=== PATIENT | female | born 1955 | race Caucasian/White ===

== ENCOUNTER 2018-03-26 19:46 | Observation (INO) | payer BC, OTHER ==
[2018-03-26] MEDS ORDERED: LABETALOL HCL 5 MG/1 ML (100MG/20 ML VIAL) IVPUSH ONE (20:34)
--- NOTE | 2018-03-26 20:43 | PDOC ---
Attending Attestation - Resident Resident Name: Mainor Nevarez - ED Attending Attestation I have performed the following: I have examined & evaluated the patient, The case was reviewed & discussed with the resident, I agree w/resident's findings & plan, Exceptions are as noted - HPI HPI: 03/27/18 00:04 Ms castillo is a 62 yo F with a history of HTN She preesnts to the ER with a complaint of chest pain Pt states she was seated and watching the [employer] and developed chest pain She noted that she felt her heart racing Pt states that she attributes this to a new medication that she was placed on No shortness of breath No recent travel No lower extremity edema - Physicial Exam PE: 03/27/18 00:48 GENERAL: The patient is in no acute distress. LUNGS: Breath sounds equal, clear to auscultation bilaterally. No wheezes, and no crackles. HEART:Regular rate and rhythm, normal S1 and S2 without murmur, rub or gallop. ABDOMEN: Soft, nontender, normoactive bowel sounds. No guarding, no rebound. No masses palpable. EXTREMITIES: Normal range of motion NEUROLOGICAL: Cranial nerves II through XII grossly intact. Normal speech. No focal neurological deficits. MUSCULOSKELETAL: Back non-tender to palpation, no CVA tenderness SKIN: Warm, Dry, normal turgor, no rashes or lesions noted. - Medical Decision Making 03/27/18 00:49 62 yo F preesnting to the ER with a complaint of chest pain, palpitations Heart was racing and upon arrival to the ER, pt noted to be hypertensive DD: ACS, Arrhythmia, PE (less likely given history and vitals), dissection (bps in both arms done and are equal) EKG: Sinus tachycardia, rate of 101 bpm, LAD, no st elevations or depressions, t waves upright Will do labs Repeat trop Laboratory Tests 03/26/18 03/26/18 20:28 23:16 Creatine Kinase 60 55 Troponin I < 0.02 0.08 H given slight elevation in trop, will place on observation Clinical Impression: chest pain, initial presentation Hypertension, initial presentation Heart Score/ECG Review - History History: Moderately suspicious - Electrocardiogram EKG: Normal - Age Age: 45-65 - Risk Factors Risk Factors Heart Score: Yes Hx Hypertension, Yes Hx Diabetes, Yes Hx Obesity Based on the list above the patient has:: >/=3 risk factors or Hx atherosclerotic disease - Troponin Troponin: </= normal limit - Score Heart Score - Total: 4
[2018-03-26 20:53] LABS: BASO % 0.9 % (0-2.0); EOS % 2.7 % (0-4.5); HEMOGLOBIN 13.4 GM/dL (10.7-15.3); LYMPH % 41.2 % (8-40); MCHC 33.5 g/dl (32.0-36.0); MEAN CELL VOLUME 80.6 fl (80-96); MEAN PLT VOLUME 8.5 fl (7.5-11.1); MONO % 6.7 % (3.8-10.2); NEUT % 48.5 % (42.8-82.8); PLATELET COUNT 240 K/MM3 (134-434); RBC 4.96 M/mm3 (3.60-5.2); RDW 15.9 % (11.6-15.6); WHITE BLOOD COUNT 8.3 K/mm3 (4.0-10.0)
[2018-03-26 21:16] LABS: ALBUMIN 3.5 g/dl (3.4-5.0); ANION GAP 6 (8-16); BILIRUBIN,TOTAL 0.3 mg/dL (0.2-1.0); BLOOD UREA NITROGEN 15 mg/dL (7-18); CALCIUM 8.6 mg/dL (8.5-10.1); CHLORIDE 108 mmol/L (98-107); CO2 27 mmol/L (21-32); CREATININE 0.9 mg/dL (0.55-1.02); GLUCOSE,RANDOM 213 mg/dL (74-106); POTASSIUM 3.9 mmol/L (3.5-5.1); SGOT/AST 16 U/L (15-37); SGPT/ALT 20 U/L (12-78); SODIUM 141 mmol/L (136-145); TOT PROT 7.4 g/dl (6.4-8.2)
[2018-03-26 21:18] LABS: ALK PHOS 92 U/L (45-117)
--- NOTE | 2018-03-26 21:23 | PDOC ---
History of Present Illness - General Chief Complaint: Pain Stated Complaint: CHEST PAIN Time Seen by Provider: 03/26/18 20:22 History Source: Patient Exam Limitations: No Limitations - History of Present Illness Initial Comments: 03/26/18 21:44 62yo F with history of Type 2 DM and HTN (on losartan) who presents today with palpitations, headache, and some chest discomfort that started around 6pm today. Pt reports this is the second episode of this which correlated with her taking a new diabetic medication that her primary provider prescribed. She was originally on 2 agents, however she was recently switched to a combo agent. Currently she reports palpitations with some chest discomfort that radiates to her back. In addition she endorses a frontal headache which began to generalize. Upon evaluation here her BP was found to be 188/103. She denies any fevers/chills, blurred vision, changes in sensation, changes in motor function, SOB, abdominal pain, dysuria, polyuria. She denies any history of cardiac disease to this point. She denies smoking and endorses occassional glasses of wine with dinner. Past History - Past Medical History Allergies/Adverse Reactions: Allergies Allergy/AdvReac Type Severity Reaction Status Date / Time aspirin Allergy "RASH ON Verified 03/26/18 19:57 FACE" Home Medications: Ambulatory Orders Dulaglutide [Trulicity] 0.75 mg SQ WEEKLY 07/28/16 Insulin Glargine,Hum.rec.anlog [Edvin Peterson] 10 unit SQ DAILY 07/28/16 Lisinopril 20 mg PO DAILY 07/28/16 Metformin HCl 500 mg PO BID 07/28/16 Pioglitazone HCl [Actos] 15 mg PO DAILY 07/28/16 Venlafaxine HCl ER [Effexor Xr -] 75 mg PO DAILY 07/28/16 COPD: No Diabetes: Yes HTN: Yes - Suicide/Smoking/Psychosocial Hx Smoking History: Never smoked Have you smoked in the past 12 months: No Information on smoking cessation initiated: No Hx Alcohol Use: No Drug/Substance Use Hx: No Substance Use Type: None Hx Substance Use Treatment: No Review of Systems - Review of Systems Constitutional: No: Chills, Fever, Malaise, Weakness HEENTM: No: Blurred Vision, Nose Congestion, Throat Pain Respiratory: No: Cough, Shortness of Breath, Wheezing Cardiac (ROS): Yes: Lightheadedness, Palpitations, Chest Tightness. No: Irregular Heart Rate ABD/GI: No: Constipated, Diarrhea, Nausea, Vomiting, Abdominal cramping : No: Dysuria, Frequency, Flank Pain Musculoskeletal: No: Back Pain, Neck Pain Neurological: Yes: Headache. No: Numbness, Tingling, Weakness, Unsteady Gait Psychiatric: Yes: Anxiety. No: Depression Hematologic/Lymphatic: No: Easy Bleeding, Easy Bruising *Physical Exam - Vital Signs Last Vital Signs Temp Pulse Resp BP Pulse Ox 98.0 F 108 H 20 147/102 97 03/26/18 19:57 03/26/18 19:57 03/26/18 19:57 03/26/18 19:57 03/26/18 19:57 - Physical Exam Comments: 03/26/18 21:49 GEN: NAD, awake, alert, and oriented HEENT: EOMI, SHAYY, NC/AT, moist mucosa Neck: No JVD LUNGS: CTA bilaterally CARDIAC: Tachycardic with regular rhythm no murmurs appreciated ABD: Soft, normoactive BS, NT/ND, no guarding BACK: No gross deformity, no CVA tenderness NEURO: CNII -XII intact, strength 5/5 grossly, sensation grossly intact EXT: Warm, no edema, DP 2+ ED Treatment Course - LABORATORY CBC & Chemistry Diagram: 03/26/18 20:28 03/26/18 20:28 - ADDITIONAL ORDERS Additional order review: 03/26/18 20:28 RBC 4.96 MCV 80.6 MCHC 33.5 RDW 15.9 H MPV 8.5 Neutrophils % 48.5 Lymphocytes % 41.2 H Monocytes % 6.7 Eosinophils % 2.7 Basophils % 0.9 - RADIOLOGY Radiology Studies Ordered: Category Date Time Status CHEST PA & LAT [RAD] Stat Radiology 03/26/18 20:22 Ordered - Medications Given in the ED: ED Medications Discontinued Medications Generic Name Dose Route Start Last Admin Trade Name Freq PRN Reason Stop Dose Admin Labetalol HCl 10 mg 03/26/18 20:34 03/26/18 21:06 Normodyne Injection - IVPUSH 03/26/18 20:35 10 mg ONCE ONE Administration Medical Decision Making - Medical Decision Making 03/26/18 20:32 Highly suspicious for hypertensive urgency --Labetolol 10mg IVP once --CBC, CMP, Trop, CXR, EKG to r/o any ACS --HEART score 3 03/26/18 21:42 On reassessment of pt after Labetolol 10mg IV she feels much better --Headache and chest discomfort have resolved --Labs are unremarkable including troponin levels --EKG revealed sinus tachycardia without any signs of ischemia --CXR negative for acute pathology Discussed about follow-up with her primary and recommended returning to her previous dual agent diabetic medication until speaking with Dr. Mandujano as this can be a possible side effect being that it correlated with the dosages. 03/26/18 22:24 Will repeat cardiac profile for confirmation of 2 negative troponins 03/27/18 00:57 Repeat troponin 0.08 (uptrending) Discussed with patient to stay and trend troponin --Most likely demand given lack of CK rise, however cannot r/o uptrending troponin reflecting need for further investigation *DC/Admit/Observation/Transfer Diagnosis at time of Disposition: Hypertensive urgency - Discharge Dispostion Admit: Yes - Referrals - Patient Instructions - Post Discharge Activity
--- NOTE | 2018-03-27 01:07 | HP ---
CHIEF COMPLAINT: chest discomfort PCP: Dr. Mandujano HISTORY OF PRESENT ILLNESS: The patient is a 62 yo f w/ PMH DM and HTN who comes into the ED c/o palpitations, headache and chest discomfort since 6pm. The patient states that the discomfort is located in the center of the chest and radiates to her back. This discomfort was associated with a frontal headache which generalized to involve the whole head over time. The patient also complains of dizziness and generalized weakness associated with her palpitations. The patient states that she had a similar episode of palpitations and discomfort which she associates with her taking a new combination diabetes medication that she recently started (Soliqua). BP in the ED was noted to be 188/103. Patient denies any SOB, abdominal pain, changes in vision, weakness. Patient endorses incidental finding of "enlarged thryoid" when she was getting a carotid doppler. Patient states that she has been compliant with her medications. Patient's last colonoscopy was unremakrable and was over 10 years ago. Patient' s last mammogram was over 5 years ago and was unremarkable. ER course was notable for: (1) Labetolol 10mg IVP (2) EKG showing sinus tachy@ 101, QTc 451 (3) troponin <.02 -> .08 Recent Travel: Went to [place] for 2 days in December PAST MEDICAL HISTORY: HTN, DM PAST SURGICAL HISTORY: Tubal ligation Right ureteral stent placement Right ureteral stricture repair Social History: Smoking: denies Alcohol: denies Drugs: denies Family History: Father, Brothers and cousins all with CAD and MD at a young age Allergies aspirin Allergy (Verified 03/26/18 19:57) "RASH ON FACE" HOME MEDICATIONS: Home Medications Medication Instructions Recorded Dulaglutide [Trulicity] 0.75 mg SQ WEEKLY 07/28/16 Insulin Glargine,Hum.rec.anlog 10 unit SQ DAILY 07/28/16 [Edvin Peterson] Lisinopril 20 mg PO DAILY 07/28/16 Metformin HCl 500 mg PO BID 07/28/16 Pioglitazone HCl [Actos] 15 mg PO DAILY 07/28/16 Venlafaxine HCl ER [Effexor Xr -] 75 mg PO DAILY 07/28/16 REVIEW OF SYSTEMS CONSTITUTIONAL: Absent: fever, chills, diaphoresis, malaise, loss of appetite, weight change HEENT: Absent: rhinorrhea, nasal congestion, throat pain, throat swelling, difficulty swallowing, mouth swelling, ear pain, eye pain, visual changes CARDIOVASCULAR: Absent: syncope, irregular heart rate, lightheadedness, peripheral edema RESPIRATORY: Absent: cough, shortness of breath, dyspnea with exertion, orthopnea, wheezing, stridor, hemoptysis GASTROINTESTINAL: Absent: abdominal pain, abdominal distension, nausea, vomiting, diarrhea, constipation, melena, hematochezia GENITOURINARY: Absent: dysuria, frequency, urgency, hesitancy, hematuria, flank pain, genital pain MUSCULOSKELETAL: Absent: myalgia, arthralgia, joint swelling, back pain, neck pain SKIN: Absent: rash, itching, pallor HEMATOLOGIC/IMMUNOLOGIC: Absent: easy bleeding, easy bruising, lymphadenopathy, frequent infections ENDOCRINE: Absent: unexplained weight gain, unexplained weight loss, heat intolerance, cold intolerance NEUROLOGIC: Absent: headache, focal weakness or paresthesias, dizziness, unsteady gait, seizure, mental status changes, bladder or bowel incontinence PSYCHIATRIC: Absent: anxiety, depression, suicidal or homicidal ideation, hallucinations. PHYSICAL EXAMINATION Vital Signs - 24 hr 03/26/18 03/26/18 19:57 22:00 Temperature 98.0 F Pulse Rate 108 H Pulse Rate [ 81 Left Radial] Respiratory 20 Rate Blood Pressure 147/102 Blood Pressure 153/94 [Left Arm] O2 Sat by Pulse 97 Oximetry (%) GENERAL: Awake, alert, and fully oriented, in no acute distress. HEAD: Normal with no signs of trauma. EYES: Pupils equal, round and reactive to light, extraocular movements intact, sclera anicteric, conjunctiva clear. No lid lag. NOSE, THROAT: nares patent, oropharynx clear without exudates. Moist mucous membranes. NECK: Normal range of motion, supple without lymphadenopathy, JVD. There is mild enlargement of the right thyroid without nodules, tenderness or warmth. LUNGS: Breath sounds equal, clear to auscultation bilaterally. No wheezes, and no crackles. No accessory muscle use. HEART: Regular rate and rhythm, normal S1 and S2 without murmur, rub or gallop. ABDOMEN: Soft, nontender, not distended, normoactive bowel sounds, no guarding, no rebound, no masses. No hepatomegaly or splenomegaly. MUSCULOSKELETAL: No CVA tenderness. LOWER EXTREMITIES: 2+ pulses, warm, well-perfused. No calf tenderness. No peripheral edema. NEUROLOGICAL: Cranial nerves II-X intact. Normal speech. Strength 5/5 in all 4 extremities. PSYCHIATRIC: Cooperative. Good eye contact. Appropriate mood and affect. SKIN: Warm, dry, normal turgor, no rashes or lesions noted, normal capillary refill. Laboratory Results - last 24 hr 03/26/18 03/26/18 03/26/18 20:28 20:28 23:16 WBC 8.3 RBC 4.96 Hgb 13.4 Hct 40.0 MCV 80.6 MCH 27.0 MCHC 33.5 RDW 15.9 H Plt Count 240 MPV 8.5 Neutrophils % 48.5 Lymphocytes % 41.2 H Monocytes % 6.7 Eosinophils % 2.7 Basophils % 0.9 Sodium 141 Potassium 3.9 Chloride 108 H Carbon Dioxide 27 Anion Gap 6 L BUN 15 Creatinine 0.9 Creat Clearance w eGFR > 60 Random Glucose 213 H Calcium 8.6 Total Bilirubin 0.3 AST 16 ALT 20 Alkaline Phosphatase 92 Creatine Kinase 60 55 Troponin I < 0.02 0.08 H Total Protein 7.4 Albumin 3.5 ASSESSMENT/PLAN: The patient is a 62 yo f w/ PMH DM, HTN who comes in complaining of chest discomfort and palpitations found to have elevated BP. #Troponemia, HTN and palpitations 2/2 medication noncompliance vs Thyroid dysfunction vs medication side effect (SOLIQUA) r/o ACS -Trop <.02 -> .08 -will trend trops -TSH -Lipid panel -mag and phos added on to previous labs -tele monitoring -cardio consult for risk stratification -medications verified with [facility] pharmacy; per pharmacist, the patient last picked up her Lostartan in December #Hypertensive urgency -resume home losartan 100mg daily -will start Norvasc 5mg in AM -clonidine .2 mg once -echo in AM #DM -BGM ACHS -ISS ACHS -A1c in AM #Prophy -Lovenox 40mg SQ daily #FEN -no fluids indicated -monitor lytes, replete PRN -diabetic diet #Dispo -Admit tele obs - Visit type - Emergency Visit Emergency Visit: Yes ED Registration Date: 03/27/18 Care time: The patient presented to the Emergency Department on the above date and was hospitalized for further evaluation of their emergent condition. - New Patient This patient is new to me today: Yes Date on this admission: 03/27/18 - Critical Care Critical Care patient: No Hospitalist Screening - Colonoscopy Questionnaire Colonoscopy Questionnaire: Colonoscopy Questionnaire - Patient: 50 - 75 years old and never had a screening colonoscopy: No History of colon or rectal polyps, or CA: Unknown History of IBD, Crohn's disease or UC: Unknown History of abdominal radiation therapy as a child: Unknown - Relative: 1 with colon or rectal CA, or polyps at age 60 or younger: Unknown Colon or rectal CA diagnosed at age 45 or younger: Unknown Multiple relatives with colon or rectal CA: Unknown - Outcome: Screening Result: Negative Screen
[2018-03-27] MEDS ORDERED: cloNIDine HCL 0.1 MG TABLET PO ONE (02:29)
--- NOTE | 2018-03-27 02:48 | PN ---
Teaching Attending Note Name of Resident: Ronaldo Fernandez ATTENDING PHYSICIAN STATEMENT I saw and evaluated the patient. Chart, data, imaging reviewed. I reviewed the resident's note and discussed the case with the resident. I agree with the resident's findings and plan as documented. SUBJECTIVE: 62yo woman with uncontrolled HTN and DM, recently started on a new DM medication - Soliqua, c/o palpitations and chest pain which started 5/5 in the evening and is now resolved. Pt reports compliance with medications. She reports CAD in her brother when he was in his 30s. She had remote cardiac stress test performed which was unremarkable. BP on the floor still elevated. Patient appears comfortable. OBJECTIVE: Last Vital Signs Temp Pulse Resp BP Pulse Ox 98.0 F 81 20 153/94 97 03/26/18 19:57 03/26/18 22:00 03/26/18 19:57 03/26/18 22:00 03/26/18 19:57 general-nad, aaox3 heent- atraumatic, moist oral mucosa cv-s1+s2+rrr chest- cta b/l skin -no rashes ext - no pedal edema Abnormal Lab Results 03/26/18 03/26/18 03/26/18 20:28 20:28 23:16 RDW 15.9 H Lymphocytes % 41.2 H Chloride 108 H Anion Gap 6 L Random Glucose 213 H Troponin I 0.08 H ekg- negative for acute ST-T changes, nsr cxr -reviewed ASSESSMENT AND PLAN: #62yo woman with chest pain and palpitations with mildly elevated troponin. Troponin leak likely secondary to severe hypertension. Doubt active ACS, although higher risk given positive family history. Possible adverse drug reaction to Soliqua as patient had just started taking this medication. -clonidine 0.2mg stat for severe htn -recheck BP in one hour -trend troponin -advised patient to stop taking Soliqua and inform her PCP of possible adverse drug reaction -restart losartan and will add norvasc 5 mg daily for better control -ASA -statin -transthoracic echo -insulin sliding scale -cardiac stress test as outpatient -diabetic, 2g Na diet -heparin sc for dvt prophylaxis
[2018-03-27 03:32] VITALS: BMI 32.8
[2018-03-27] MEDS: INSULIN SLIDING SCALE (NOVOLOG) 1 VIAL SQ SCH ×4 (06:37→22:05)
[2018-03-27 07:00] LABS: ANION GAP 5 (8-16); BLOOD UREA NITROGEN 19 mg/dL (7-18); CALCIUM 8.3 mg/dL (8.5-10.1); CHLORIDE 109 mmol/L (98-107); CO2 29 mmol/L (21-32); CREATININE 0.8 mg/dL (0.55-1.02); GLUCOSE,RANDOM 184 mg/dL (74-106); MAGNESIUM 1.9 mg/dL (1.8-2.4); PHOSPHOROUS 3.9 mg/dL (2.5-4.9); POTASSIUM 4.1 mmol/L (3.5-5.1); SODIUM 143 mmol/L (136-145)
[2018-03-27] MEDS: ENOXAPARIN NA (PORCINE) 40 MG/0.4 ML DISP.SYRIN SQ SCH (09:37)
[2018-03-27] MEDS: LOSARTAN POTASSIUM 50 MG TABLET (FP) PO SCH (09:37)
[2018-03-27] MEDS: amLODIPine BESYLATE 5 MG TABLET (FP) PO SCH (09:37)
--- NOTE | 2018-03-27 09:56 | CON.CARD ---
Consult Consult Specialty:: Cardiology Referred by:: Hospitalist Reason for Consultation:: Cardiac evaluation - History of Present Illness Chief Complaint: Palpitations History of Present Illness: Patient is a 62 year old female with underlying history of hypertension and type 2 diabetes mellitus who presents with complaints of palpitations. ER note states patient also had small amount of chest discomfort. BP was elevated at 188 /103 mmHg. Blood work revealed mild elevation of troponin to 0.10 this am from 0.08 yesterday. She denies chest pain, shortness of breath or palpitations this am. She denies paroxysmal nocturnal dyspnea or orthopnea. She denies fever or chills. She denies nausea, vomiting, diarrhea or abdominal pain. She denies headache or lightheadedness. She has strong family history of CAD and [place]. - History Source History Provided By: Patient, Medical Record Limitations to Obtaining History: No Limitations - Past Medical History Cardio/Vascular: Yes: HTN ...: No Endocrine: Yes: Diabetes Mellitus - Past Surgical History Past Surgical History: Yes: Tubal Ligation - Alcohol/Substance Use Hx Alcohol Use: No - Smoking History Smoking history: Never smoked Have you smoked in the past 12 months: No Home Medications - Allergies Allergies/Adverse Reactions: Allergies Allergy/AdvReac Type Severity Reaction Status Date / Time aspirin Allergy "RASH ON Verified 03/26/18 19:57 FACE" - Home Medications Home Medications: Ambulatory Orders Dulaglutide [Trulicity] 1.5 mg SQ WEEKLY 07/28/16 Insulin Glargine,Hum.rec.anlog [Edvin Peterson] 16 unit SQ DAILY 07/28/16 Metformin HCl 500 mg PO BID 07/28/16 Losartan Potassium 100 mg PO DAILY 03/27/18 Family Disease History - Family Disease History Family Disease History: Heart Disease: Father ( when he was in 40's), Mother , Brother ( when he was 38) Review of Systems - Review of Systems Constitutional: denies: Chills, Fever Cardiovascular: reports: Chest Pain, Palpitations. denies: Shortness of Breath Respiratory: denies: Cough, Hemoptysis, Orthopnea, PND, SOB, SOB on Exertion Gastrointestinal: denies: Abdominal Pain, Constipation, Diarrhea, Melena, Nausea , Rectal Bleeding, Vomiting Musculoskeletal: denies: Back Pain, Joint Pain Neurological: denies: Dizziness, Headache, Numbness, Seizure, Syncope, Weakness Vital Signs: Vital Signs Temperature 98.1 F 03/27/18 07:57 Pulse Rate 60 03/27/18 07:57 Respiratory Rate 17 03/27/18 07:57 Blood Pressure 108/63 03/27/18 07:57 O2 Sat by Pulse Oximetry (%) 96 03/27/18 07:55 Constitutional: Yes: Well Nourished Eyes: Yes: Conjunctiva Clear, PERRL HENT: Yes: Atraumatic Neck: Yes: Supple Respiratory: Yes: CTA Bilaterally Gastrointestinal: Yes: Normal Bowel Sounds, Soft. No: Tenderness Cardiovascular: Yes: Regular Rate and Rhythm JVD: No Carotid Bruit: No PMI: Non-Displaced Heart Sounds: Yes: S1, S2. No: Gallop Murmur: No: Systolic Murmur, Diastolic Murmur Edema: No - Other Data Labs, Other Data: CBC, BMP 03/26/18 20:28 03/27/18 05:00 Troponin, BNP 03/26/18 03/26/18 03/27/18 20:28 23:16 05:00 Troponin I < 0.02 0.08 H 0.10 H Laboratory Results - last 24 hr 03/26/18 03/26/18 03/26/18 20:28 20:28 23:16 WBC 8.3 RBC 4.96 Hgb 13.4 Hct 40.0 MCV 80.6 MCH 27.0 MCHC 33.5 RDW 15.9 H Plt Count 240 MPV 8.5 Neutrophils % 48.5 Lymphocytes % 41.2 H Monocytes % 6.7 Eosinophils % 2.7 Basophils % 0.9 Sodium 141 Potassium 3.9 Chloride 108 H Carbon Dioxide 27 Anion Gap 6 L BUN 15 Creatinine 0.9 Creat Clearance w eGFR > 60 POC Glucometer Random Glucose 213 H Hemoglobin A1c % Calcium 8.6 Phosphorus Magnesium Total Bilirubin 0.3 AST 16 ALT 20 Alkaline Phosphatase 92 Creatine Kinase 60 55 Troponin I < 0.02 0.08 H Total Protein 7.4 Albumin 3.5 Triglycerides Cholesterol Total LDL Cholesterol HDL Cholesterol TSH 03/27/18 03/27/18 03/27/18 05:00 05:00 05:00 WBC RBC Hgb Hct MCV MCH MCHC RDW Plt Count MPV Neutrophils % Lymphocytes % Monocytes % Eosinophils % Basophils % Sodium 143 Potassium 4.1 Chloride 109 H Carbon Dioxide 29 Anion Gap 5 L BUN 19 H Creatinine 0.8 Creat Clearance w eGFR POC Glucometer Random Glucose 184 H Hemoglobin A1c % 8.4 H Calcium 8.3 L Phosphorus 3.9 Magnesium 1.9 Total Bilirubin AST ALT Alkaline Phosphatase Creatine Kinase Troponin I 0.10 H Total Protein Albumin Triglycerides 110 Cholesterol 174 Total LDL Cholesterol 122 H HDL Cholesterol 44 TSH 1.47 Sinus rhythm low voltage Imaging - Results Chest X-ray: Report Reviewed (Unremarkable) EKG: Report Reviewed Problem List - Problems (1) Diabetes mellitus Code(s): E11.9 - TYPE 2 DIABETES MELLITUS WITHOUT COMPLICATIONS (2) Elevated troponin Code(s): R74.8 - ABNORMAL LEVELS OF OTHER SERUM ENZYMES (3) Demand ischemia Code(s): I24.8 - OTHER FORMS OF ACUTE ISCHEMIC HEART DISEASE (4) Hypertensive urgency Code(s): I16.0 - HYPERTENSIVE URGENCY Assessment/Plan 1. Palpitation and possible chest pain syndrome 2. Hypertension 3. Diabetes mellitus 4. Elevated troponin likely represent demand ischemia with elevation of BP, but need to exclude CAD PLAN: 1. Trend troponin 2. Continue Losartan and may continue Amlodipine for now 3. Since allergy to ASA, may use Plavix if needed 4. Lipid panel 5. Transthoracic echocardiography to assess LV/RV and valvular function 6. Consider nuclear myocardial perfusion imaging (Pharmacological in view of presentation) Further plans are to follow Sergio Wilson MD
--- NOTE | 2018-03-27 10:34 | HOSP ---
Subjective - Review of Symptoms Events since last encounter: sub: no cp , or palpitations now. cp lasted 2 hours until BP was controlled. No fevr ro chills,. denies exertional cp or SOB. denies recurrent palpitations . OBJ: VS reviewed. NAD, MMM, ' CV: RRR, no MRG , no JVD Lungs: CTAb Abd: soft, NT, ND ,NL BS Ext: no edema , no erythema , A/P : 62 y/o lady with h/o DM , HTN , and family hx of premature CAD who presented with CP and palpitations. she was found to have HTN emergency 1- HTN emergency with trop leak. Now BP is better controlled - cont losartan and norvasc - might consider BB if CAD - monitor kidney function 2- CP : EKG with RBBB, and flat T waves in septal leads with L axis deviation. trop leak could be demand ischemia in setting of HTN. - trop is slightly elevated, now 0.18. - trend - monitor on tele - if trop plateau and decrease , will probably check stress test given all her risk factors 3- DM : takes Soliqua daily after being changed from Toujio 16 units HS and trulicity weekly - unlikely what happened was a reactionto meds , but will stop it pending d/w her PCP - start levemir in HS - SSI A1c 8.4 4- DVT PX Physical Examination Vital Signs: Vital Signs Temperature 98.1 F 03/27/18 07:57 Pulse Rate 60 03/27/18 07:57 Respiratory Rate 17 03/27/18 07:57 Blood Pressure 108/63 03/27/18 07:57 O2 Sat by Pulse Oximetry (%) 96 03/27/18 07:55 Labs: CBC, BMP 03/26/18 20:28 03/27/18 05:00
[2018-03-27] MEDS ORDERED: INSULIN (NOVOLOG) ASPART 100 UNITS/ML 10ML VIAL ONE (21:54)
[2018-03-27] MEDS ORDERED: ATORVASTATIN CA 20 MG TABLET (FP) PO SCH (22:00)
--- NOTE | 2018-03-27 23:56 | PN ---
Progress Note (short form) - Note Progress Note: Paged by nurse. Was told patient is refusing Lipitor. Patient was advised by her PCP not to take it due to severe muscle aches and soreness. Patient said she has tried multiple statins with the same reactions. -Lipitor held
[2018-03-28] MEDS: INSULIN SLIDING SCALE (NOVOLOG) 1 VIAL SQ SCH ×3 (06:22→17:36)
[2018-03-28 07:18] LABS: ANION GAP 4 (8-16); BLOOD UREA NITROGEN 18 mg/dL (7-18); CALCIUM 7.9 mg/dL (8.5-10.1); CHLORIDE 110 mmol/L (98-107); CO2 28 mmol/L (21-32); CREATININE 0.7 mg/dL (0.55-1.02); GLUCOSE,RANDOM 161 mg/dL (74-106); SODIUM 142 mmol/L (136-145)
[2018-03-28 07:42] LABS: POTASSIUM 4.3 mmol/L (3.5-5.1)
[2018-03-28 08:07] LABS: CHOLESTEROL 169 mg/dL (50-200); HDL CHOLESTEROL 38 mg/dL (40-60); TRIGLYCERIDES 184 mg/dL (35-160)
[2018-03-28] MEDS: ENOXAPARIN NA (PORCINE) 40 MG/0.4 ML DISP.SYRIN SQ SCH ×2 (08:09→10:15)
[2018-03-28] MEDS: LOSARTAN POTASSIUM 50 MG TABLET (FP) PO SCH ×2 (08:09→10:15)
[2018-03-28] MEDS: amLODIPine BESYLATE 5 MG TABLET (FP) PO SCH ×2 (08:09→10:15)
[2018-03-28] MEDS ORDERED: REGADENOSON 0.4 MG/5 ML PRE-FILLED SYRINGE IVPUSH ONE ×2 (09:59→10:30)
--- NOTE | 2018-03-28 10:46 | EKG ---
Test Reason : Blood Pressure : / mmHG Vent. Rate : 101 BPM Atrial Rate : 101 BPM P-R Int : 158 ms QRS Dur : 080 ms QT Int : 348 ms P-R-T Axes : 036 -40 033 degrees QTc Int : 451 ms SINUS TACHYCARDIA LEFT AXIS DEVIATION POSSIBLE LATERAL INFARCT (CITED ON OR BEFORE 26-MAR-2018) ABNORMAL ECG WHEN COMPARED WITH ECG OF 26-AUG-2009 09:28, VENT. RATE HAS INCREASED BY 38 BPM Confirmed by BALBINA BURT MD ([id number]) on 03/28/2018 10:45:34 AM Referred By: Confirmed By:BALBINA BURT MD
--- NOTE | 2018-03-28 10:49 | PN ---
Progress Note, Physician Chief Complaint: Events noted Not in distress History of Present Illness: Patient was seen and examined. Awake and alert. Chart was reviewed Denies chest pain, SOB or palpitations - Current Medication List Current Medications: Active Medications Amlodipine Besylate (Norvasc -) 5 mg PO DAILY [facility] Last Admin: 03/28/18 10:15 Dose: Not Given Enoxaparin Sodium (Lovenox -) 40 mg SQ DAILY [facility] Last Admin: 03/28/18 10:15 Dose: Not Given Insulin Aspart (Novolog Vial Sliding Scale -) 1 vial SQ ACHS [facility] PRN Reason: Protocol Last Admin: 03/28/18 06:22 Dose: Not Given Losartan Potassium (Cozaar -) 100 mg PO DAILY [facility] Last Admin: 03/28/18 10:15 Dose: Not Given - Objective Vital Signs: Vital Signs Temperature 98.1 F 03/28/18 06:00 Pulse Rate 68 03/28/18 06:00 Respiratory Rate 16 03/28/18 06:00 Blood Pressure 130/72 03/28/18 06:00 O2 Sat by Pulse Oximetry (%) 98 03/27/18 21:00 HENT: Yes: Atraumatic Neck: Yes: Supple Cardiovascular: Yes: Regular Rate and Rhythm, S1, S2 Respiratory: Yes: CTA Bilaterally Gastrointestinal: Yes: Normal Bowel Sounds, Soft. No: Tenderness Edema: No Additional Findings/Remarks: - Review of Systems Constitutional: denies: Chills, Fever Cardiovascular: reports: Chest Pain, Palpitations. denies: Shortness of Breath Respiratory: denies: Cough, Hemoptysis, Orthopnea, PND, SOB, SOB on Exertion Gastrointestinal: denies: Abdominal Pain, Constipation, Diarrhea, Melena, Nausea , Rectal Bleeding, Vomiting Musculoskeletal: denies: Back Pain, Joint Pain Neurological: denies: Dizziness, Headache, Numbness, Seizure, Syncope, Weakness Labs: CBC, BMP 03/26/18 20:28 03/28/18 06:30 Problem List - Problems (1) Diabetes mellitus Code(s): E11.9 - TYPE 2 DIABETES MELLITUS WITHOUT COMPLICATIONS Qualifiers: Diabetes mellitus type: type 2 Diabetes mellitus halfway insulin use: without halfway use Diabetes mellitus complication status: without complication Qualified Code(s): E11.9 - Type 2 diabetes mellitus without complications (2) Elevated troponin Code(s): R74.8 - ABNORMAL LEVELS OF OTHER SERUM ENZYMES (3) Demand ischemia Code(s): I24.8 - OTHER FORMS OF ACUTE ISCHEMIC HEART DISEASE (4) Hypertensive urgency Code(s): I16.0 - HYPERTENSIVE URGENCY Assessment/Plan 1. Palpitation and chest pain syndrome 2. Hypertension 3. Diabetes mellitus 4. Elevated troponin likely represent demand ischemia with elevation of BP, but need to exclude CAD PLAN: 1. Trend troponin - now 0.04 2. Continue Losartan and Amlodipine 3. Since allergy to ASA, may use Plavix if needed 4. Lipid panel reviewed 5. Transthoracic echocardiography to assess LV/RV and valvular function 6. Nuclear myocardial perfusion imaging (Pharmacological in view of presentation ) Further plans are to follow. Patient was seen, examined and counseled for 25 min Sergio Wilson MD
--- NOTE | 2018-03-28 14:03 | PN ---
Teaching Attending Note Name of Resident: Mainor Nevarez ATTENDING PHYSICIAN STATEMENT I saw and evaluated the patient. I reviewed the resident's note and discussed the case with the resident. I agree with the resident's findings and plan as documented. SUBJECTIVE: No CP or palpitations. denies SOB OBJECTIVE: NAD, MMM CV: RRR, no MRG , no JVD Lungs: CTAB Ext: no edema, no erythema. A/P : 62 y/o lady with h/o DM , HTN , and family hx of premature CAD who presented with CP and palpitations. she was found to have HTN emergency 1- HTN emergency with trop leak. Now BP is better controlled - cont losartan and norvasc 2- CP with mild hypertroponemia. Trop peaked and trended down. - follow stress test results 3- DM : Levemir and SSI . cont her old regimen of levemir and Trulicity at dc. d/w her PCP the use of soliqua Dispo: if stress test is neg , can dc home
--- NOTE | 2018-03-28 17:20 | DS ---
Physical Exam: SUBJECTIVE: No new complaints today. No events on monitor. No other events experienced such as the one that lead to admission. OBJECTIVE: Vital Signs Period Temp Pulse Resp BP Sys/Simmons Pulse Ox Last 24 Hr 97.8 F-98.4 F 61-82 16-18 119-158/63-86 97-98 PHYSICAL EXAM GEN: NAD, awake, alert, and sitting in bed HEENT: EOMI, SHAYY, sclera anicteric, moist mucosa Neck: Supple, no JVD, no thyromegaly LUNGS: CTA bilaterally no wheezes rhonchi or rales CARDIAC: RRR no murmurs appreciated ABD: Soft, NT/ND, normoactive BS, no guarding. EXT: 2+ distal pulses, warm, no edema noted PSYCH: Normal mood, normal affect. SKIN: Warm, dry, no rashes or lesions noted. LABS Laboratory Results - last 24 hr 03/27/18 03/28/18 03/28/18 22:04 05:39 06:30 Sodium Potassium Chloride Carbon Dioxide Anion Gap BUN Creatinine POC Glucometer 180 156 Random Glucose Calcium Creatine Kinase Troponin I Triglycerides 184 H Cholesterol 169 Total LDL Cholesterol 114 H HDL Cholesterol 38 L 03/28/18 06:30 Sodium 142 Potassium 4.3 Chloride 110 H Carbon Dioxide 28 Anion Gap 4 L BUN 18 Creatinine 0.7 POC Glucometer Random Glucose 161 H Calcium 7.9 L Creatine Kinase 55 Troponin I 0.04 Triglycerides Cholesterol Total LDL Cholesterol HDL Cholesterol HOSPITAL COURSE: Date of Admission:03/27/18 Date of Discharge: 03/28/18 Pt was admitted on 03/27/18 for two episodes of chest discomfort, palpitations, and elevated blood pressure found to be in hypertensive emergency with a Troponin I leak (0.02, 0.08, 0.10, 0.08, 0.04). During her admission, pt did not experience any subsequent episodes and her cardiac monitor technician did not show any arrhythmic events. She received an echocardiogram which showed normal LV size and function with normal RV and notable for mild MR and TR. However pt did receive a chemical stress test which revealed: 1) Small subtle apical reversible defect suggesting mild intensity ischemia and 2) Normal LV contraction with LV EF of 67% at rest and 66% at stress. Pt was subsequently started on Plavix 75mg PO qDaily due to allergy to aspirin and was given Labetolol 100mg PO BID to control her hypertension. Pt was also suggested to return from [facility] to [facility] and [facility] until discussion with her primary care physician. Pt was discharged in stable condition. Additional Imaging/Notable Labs: 03/26/18 CXR: No acute pathology including infiltrates or opacifications noted Laboratory Tests 03/27/18 03/28/18 05:00 06:30 Triglycerides 184 H Cholesterol 169 Total LDL Cholesterol 114 H HDL Cholesterol 38 L TSH 1.47 Minutes to complete discharge: 36 Discharge Summary Reason For Visit: HYPERTENSIVE URGENCY Current Active Problems Demand ischemia (Acute) Elevated troponin (Acute) Hypertensive urgency (Acute) Diabetes mellitus (Chronic) Condition: Stable - Instructions Diet, Activity, Other Instructions: You were seen for your palpitaitons and hypertension. During your stay your cardiac enzymes became slightly elevated which is why you were admitted. While you were here you were started on a new medicaiton: Norvasc 5mg by Mouth ONCE daily. In addition your received an echocardiogram which revealed: normal ventricular function (meaning the squeeze of your heart is still normal) and you received a chemical stress test which revealed: a mild area at the bottom of your heart with poor oxygen Medications: Your new medication, Labetalol, will be prescribed to your pharmacy --Please take 100mg TWICE per day BY MOUTH to help control your blood pressures Please begin taking Plavix 75mg ONCE per day BY MOUTH in lieu of your abnormal stress test. --This prescription has been sent to your pharmacy In addition, we recommend returning to [facility] and [facility] (from your [facility]) and to FOLLOW with your PMD (Dr. Mandujano) within the next week to discuss possible changes and what happened here We also recommend you follow-up with Dr. Wilson's office for your abnormal stress test If you have palpitations, chest pain, shortness of breath, or any other concerning symptoms please feel free to return to the hospital. Referrals: Manoj Mandujano [Primary Care Provider] - Sergio Wilson MD [Staff Physician] - Disposition: HOME - Home Medications Comprehensive Discharge Medication List: Ambulatory Orders Dulaglutide [[facility]] 1.5 mg SQ WEEKLY 07/28/16 Insulin Glargine,Hum.rec.anlog [[facility]] 16 unit SQ DAILY 07/28/16 Metformin HCl 500 mg PO BID 07/28/16 Losartan Potassium 100 mg PO DAILY 03/27/18 Amlodipine Besylate [Norvasc -] 5 mg PO DAILY #30 tablet 03/28/18 Clopidogrel Bisulfate [Plavix] 75 mg PO DAILY #30 tablet 03/28/18 This patient is new to me today: No Emergency Visit: No Critical Care patient: No - Discharge Referral Referred to [facility] No
[2018-03-28 19:26] VITALS: BP 149/79; PULSE 73; TEMP 98
== END 2018-03-28 18:31 | disposition home or self-care (01) ==
LOC: JER 19:46 → JERBED 03-27 00:44 → J4W 03-27 03:06
PROVIDERS: ADMIT Internal Medicine; ATTEND Internal Medicine
PROC: 3E033GC Introduction of Other Therapeutic Substance into Peripheral Vein, Percutaneous Approach (ICD-10-PCS; principal; 2018-03-27)
DX: I16.0 Hypertensive urgency (principal); I10 Essential (primary) hypertension; I24.8 Other forms of acute ischemic heart disease; R77.8 Other specified abnormalities of plasma proteins; E11.9 Type 2 diabetes mellitus without complications; Z79.4 Long term (current) use of insulin; Z79.84 Long term (current) use of oral hypoglycemic drugs; Z88.6 Allergy status to analgesic agent
CPT/HCPCS: 36415; 71046-TC-FY; 78452-TC; 80048; 80053; 80061; 82550; 82962; 83036; 83721; 83735; 84100; 84443; 84484; 85025; 93005; 93010; 93017; 93306-TC; 99285-25; A9502; G0378; J0735; J2785